=== PATIENT | female | born 1970 | race Caucasian/White ===

== ENCOUNTER 2023-01-01 18:13 | Inpatient (IN) | payer OTHER ==
[2023-01-01 18:51] VITALS: BMI 20.3
[2023-01-01] MEDS ORDERED: BENZONATATE 200 MG CAPSULE PO PRN (21:00)
[2023-01-01] MEDS ORDERED: BISMUTH SUBSALICYLATE 524 MG/30 ML PO PRN (21:00)
[2023-01-01] MEDS ORDERED: BENZOCAINE/MENTHOL (CHLORASEPTIC ) LOZENGE MM PRN (21:00)
[2023-01-01] MEDS ORDERED: DICYCLOMINE HCL 10 MG CAPSULE PO PRN (21:00)
[2023-01-01] MEDS ORDERED: guaiFENesin 600 MG TABLET.ER (FP) PO PRN (21:00)
[2023-01-01] MEDS ORDERED: MAGNESIUM HYDROX 2400MG/30ML ORAL SUSPENSION 30 ML CUP PO PRN (21:00)
[2023-01-01] MEDS ORDERED: LOPERAMIDE HCL 2 MG CAPSULE PO PRN (21:00)
[2023-01-01] MEDS ORDERED: POLYETHYLENE GLYCOL (HEALTHYLAX) 3350 17 GM PACKET PO PRN (21:00)
[2023-01-01] MEDS ORDERED: NALOXONE HCL 0.4 MG/ML VIAL IM PRN (21:00)
[2023-01-01] MEDS ORDERED: hydrOXYzine PAMOATE 25 MG CAPSULE (FP) PO PRN (21:00)
[2023-01-01] MEDS ORDERED: IBUPROFEN 400 MG TABLET (FP) PO PRN (21:00)
[2023-01-01] MEDS ORDERED: ONDANSETRON *ODT* 4 MG TABLET SL PRN (21:00)
[2023-01-01] MEDS ORDERED: ACETAMINOPHEN 325 MG TABLET (FP) PO PRN ×2 (21:00)
[2023-01-01] MEDS ORDERED: MAG HYDROX/AL HYDROX/SIMETH 30 ML UNIT-DOSE CUP PO PRN (21:00)
[2023-01-01] MEDS ORDERED: P-EPHED 60MG/TRIPROLIDI 2.5MG TABLET PO PRN (21:00)
[2023-01-01] MEDS ORDERED: IBUPROFEN 600 MG TABLET (FP) PO PRN (21:00)
[2023-01-01] MEDS ORDERED: NALOXONE HCL (KLOXXADO) 8 MG SPRAY NS PRN (21:00)
[2023-01-01] MEDS ORDERED: chlordiazePOXIDE HCL 25 MG CAPSULE PO PRN (21:02)
[2023-01-01] MEDS: THIAMINE HCL 100 MG TABLET (FP) PO SCH (22:31)
[2023-01-01] MEDS: chlordiazePOXIDE HCL 25 MG CAPSULE PO SCH (22:31)
[2023-01-01] MEDS: MELATONIN 5 MG TABLETS PO SCH (22:31)
[2023-01-02] MEDS: chlordiazePOXIDE HCL 25 MG CAPSULE PO SCH ×4 (05:55→22:47)
[2023-01-02] MEDS: PRENATAL VITAMINS W/ FOLIC ACID TABLET (FP) PO SCH (10:18)
[2023-01-02] MEDS: MELATONIN 5 MG TABLETS PO SCH (22:45)
[2023-01-02] MEDS: THIAMINE HCL 100 MG TABLET (FP) PO SCH (22:45)
[2023-01-03] MEDS: chlordiazePOXIDE HCL 25 MG CAPSULE PO SCH ×4 (05:37→22:07)
[2023-01-03] MEDS: PRENATAL VITAMINS W/ FOLIC ACID TABLET (FP) PO SCH (10:16)
[2023-01-03] MEDS: MELATONIN 5 MG TABLETS PO SCH (22:07)
[2023-01-03] MEDS: THIAMINE HCL 100 MG TABLET (FP) PO SCH (22:07)
[2023-01-04] MEDS ORDERED: chlordiazePOXIDE HCL 10 MG CAPSULE PO PRN
[2023-01-04] MEDS: chlordiazePOXIDE HCL 10 MG CAPSULE PO SCH ×4 (05:55→22:19)
[2023-01-04] MEDS: PRENATAL VITAMINS W/ FOLIC ACID TABLET (FP) PO SCH (10:16)
[2023-01-04] MEDS: MELATONIN 5 MG TABLETS PO SCH (22:19)
[2023-01-04] MEDS: THIAMINE HCL 100 MG TABLET (FP) PO SCH (22:19)
[2023-01-05] MEDS ORDERED: chlordiazePOXIDE HCL 10 MG CAPSULE PO SCH (05:00)
[2023-01-05 06:59] VITALS: BP 115/64; PULSE 60; RESP 17; TEMP 97.8
[2023-01-06] MEDS ORDERED: chlordiazePOXIDE HCL 10 MG CAPSULE PO ONE (05:00)
== END 2023-01-05 08:49 | disposition home or self-care (01) | DRG 897 ==
LOC: YASAS 18:13 → Y6N 21:16
PROVIDERS: ADMIT Allergy & Immunology; ATTEND Surgery
PROC: HZ2ZZZZ Detoxification Services for Substance Abuse Treatment (ICD-10-PCS; principal; 2023-01-01)
DX: F10.230 Alcohol dependence with withdrawal, uncomplicated (principal); Z56.0 Unemployment, unspecified; Z59.00 Homelessness unspecified
CPT/HCPCS: 81025; C9803-CS; Q0162; U0003; U0005

== ENCOUNTER 2023-05-07 13:09 | Inpatient (IN) | payer OTHER ==
[2023-05-07 13:47] VITALS: BMI 21.2
[2023-05-07] MEDS ORDERED: BISMUTH SUBSALICYLATE 524 MG/30 ML PO PRN (15:42)
[2023-05-07] MEDS ORDERED: BENZONATATE 200 MG CAPSULE PO PRN (15:42)
[2023-05-07] MEDS ORDERED: BENZOCAINE/MENTHOL (CHLORASEPTIC ) LOZENGE MM PRN (15:42)
[2023-05-07] MEDS ORDERED: MAG HYDROX/AL HYDROX/SIMETH 30 ML UNIT-DOSE CUP PO PRN (15:42)
[2023-05-07] MEDS ORDERED: METHOCARBAMOL 500 MG TABLET PO PRN (15:42)
[2023-05-07] MEDS ORDERED: IBUPROFEN 400 MG TABLET (FP) PO PRN (15:42)
[2023-05-07] MEDS ORDERED: LOPERAMIDE HCL 2 MG CAPSULE PO PRN (15:42)
[2023-05-07] MEDS ORDERED: MAGNESIUM HYDROX 2400MG/30ML ORAL SUSPENSION 30 ML CUP PO PRN (15:42)
[2023-05-07] MEDS ORDERED: ACETAMINOPHEN 325 MG TABLET (FP) PO PRN (15:42)
[2023-05-07] MEDS ORDERED: IBUPROFEN 600 MG TABLET (FP) PO PRN (15:42)
[2023-05-07] MEDS ORDERED: POLYETHYLENE GLYCOL (HEALTHYLAX) 3350 17 GM PACKET PO PRN (15:42)
[2023-05-07] MEDS ORDERED: guaiFENesin 600 MG TABLET.ER (FP) PO PRN (15:42)
[2023-05-07] MEDS ORDERED: DICYCLOMINE HCL 10 MG CAPSULE PO PRN (15:42)
[2023-05-07] MEDS ORDERED: diazePAM 5 MG TABLET PO PRN (15:47)
[2023-05-07] MEDS ORDERED: diazePAM 5 MG TABLET ONE (17:32)
[2023-05-07] MEDS: diazePAM 5 MG TABLET PO SCH ×2 (17:37→22:24)
[2023-05-07] MEDS ORDERED: METOPROLOL TARTRATE 25 MG TABLET (FP) PO ONE (20:54)
[2023-05-07] MEDS: MELATONIN 5 MG TABLETS PO SCH (22:23)
[2023-05-07] MEDS: THIAMINE HCL 100 MG TABLET (FP) PO SCH (22:23)
[2023-05-07] MEDS: SULFAMETHOXAZOLE/TRIMETHOPRIM 800MG/160MG D.S. TABLET PO SCH (22:24)
[2023-05-08] MEDS: diazePAM 5 MG TABLET PO SCH ×4 (05:56→22:43)
[2023-05-08] MEDS: PRENATAL VITAMINS W/ FOLIC ACID TABLET (FP) PO SCH (10:21)
[2023-05-08] MEDS: SULFAMETHOXAZOLE/TRIMETHOPRIM 800MG/160MG D.S. TABLET PO SCH ×2 (10:23→22:40)
[2023-05-08 10:53] LABS: HEMATOCRIT 38.1 % (32.4-45.2); HEMOGLOBIN 12.7 GM/dL (10.7-15.3); MCH 34.4 pg (25.7-33.7); MCHC 33.3 g/dl (32.0-36.0); MEAN CELL VOLUME 103.2 fl (80-96); MEAN PLT VOLUME 8.6 fl (7.5-11.1); PLATELET COUNT 153 10^3/uL (134-434); RBC 3.69 M/mm3 (3.60-5.2); RDW 16.6 % (11.6-15.6); WHITE BLOOD COUNT 8.4 K/mm3 (4.0-10.0)
[2023-05-08 10:54] LABS: POTASSIUM 4.3 mmol/L (3.5-5.1)
[2023-05-08 10:57] LABS: CALCIUM 8.7 mg/dL (8.5-10.1)
[2023-05-08 10:58] LABS: ALBUMIN 3.1 g/dl (3.4-5.0); BLOOD UREA NITROGEN 9.2 mg/dL (7-18)
[2023-05-08 11:01] LABS: CREATININE 0.7 mg/dL (0.55-1.3)
[2023-05-08 11:02] LABS: BILIRUBIN,TOTAL 1.1 mg/dL (0.2-1); TOT PROT 6.6 g/dl (6.4-8.2)
[2023-05-08] MEDS: hydrOXYzine PAMOATE 25 MG CAPSULE (FP) PO PRN (16:51)
[2023-05-08] MEDS: ONDANSETRON *ODT* 4 MG TABLET SL PRN (16:51)
[2023-05-08] MEDS: THIAMINE HCL 100 MG TABLET (FP) PO SCH (22:40)
[2023-05-08] MEDS: MELATONIN 5 MG TABLETS PO SCH (22:40)
[2023-05-09] MEDS: diazePAM 5 MG TABLET PO SCH ×3 (05:49→22:36)
[2023-05-09] MEDS: PRENATAL VITAMINS W/ FOLIC ACID TABLET (FP) PO SCH (09:45)
[2023-05-09] MEDS: SULFAMETHOXAZOLE/TRIMETHOPRIM 800MG/160MG D.S. TABLET PO SCH ×2 (09:46→22:36)
[2023-05-09] MEDS: THIAMINE HCL 100 MG TABLET (FP) PO SCH (22:36)
[2023-05-09] MEDS: MELATONIN 5 MG TABLETS PO SCH (22:37)
[2023-05-10] MEDS: diazePAM 5 MG TABLET PO SCH ×2 (05:36→17:05)
[2023-05-10] MEDS: SULFAMETHOXAZOLE/TRIMETHOPRIM 800MG/160MG D.S. TABLET PO SCH ×2 (09:50→22:09)
[2023-05-10] MEDS: PRENATAL VITAMINS W/ FOLIC ACID TABLET (FP) PO SCH (09:50)
[2023-05-10] MEDS: hydrOXYzine PAMOATE 25 MG CAPSULE (FP) PO PRN (17:05)
[2023-05-10] MEDS: ONDANSETRON *ODT* 4 MG TABLET SL PRN (17:05)
[2023-05-10] MEDS: MELATONIN 5 MG TABLETS PO SCH (22:09)
[2023-05-10] MEDS: THIAMINE HCL 100 MG TABLET (FP) PO SCH (22:09)
[2023-05-11] MEDS ORDERED: diazePAM 5 MG TABLET PO ONE (06:00)
[2023-05-11 06:01] VITALS: RESP 18
[2023-05-11 09:26] VITALS: BP 116/66; PULSE 88; TEMP 99.1
[2023-05-11] MEDS: PRENATAL VITAMINS W/ FOLIC ACID TABLET (FP) PO SCH (09:51)
[2023-05-11] MEDS: SULFAMETHOXAZOLE/TRIMETHOPRIM 800MG/160MG D.S. TABLET PO SCH (09:51)
== END 2023-05-11 12:14 | disposition home or self-care (01) | DRG 897 ==
LOC: YASAS 13:09 → Y6N 17:06
PROVIDERS: ADMIT Allergy & Immunology; ATTEND Surgery
PROC: HZ2ZZZZ Detoxification Services for Substance Abuse Treatment (ICD-10-PCS; principal; 2023-05-07)
DX: F10.230 Alcohol dependence with withdrawal, uncomplicated (principal); L02.811 Cutaneous abscess of head [any part, except face]
CPT/HCPCS: 36415; 80053; 85027; 86780; 87635; Q0162

== ENCOUNTER 2023-08-30 12:33 | Inpatient (IN) | payer OTHER ==
[2023-08-30 14:12] VITALS: BMI 21.9
[2023-08-30] MEDS ORDERED: MAGNESIUM HYDROX 2400MG/30ML ORAL SUSPENSION 30 ML CUP PO PRN (16:21)
[2023-08-30] MEDS ORDERED: MAG HYDROX/AL HYDROX/SIMETH 30 ML UNIT-DOSE CUP PO PRN (16:21)
[2023-08-30] MEDS ORDERED: BENZOCAINE/MENTHOL (CHLORASEPTIC ) LOZENGE MM PRN (16:21)
[2023-08-30] MEDS ORDERED: LOPERAMIDE HCL 2 MG CAPSULE PO PRN (16:21)
[2023-08-30] MEDS ORDERED: DICYCLOMINE HCL 10 MG CAPSULE PO PRN (16:21)
[2023-08-30] MEDS ORDERED: BENZONATATE 200 MG CAPSULE PO PRN (16:21)
[2023-08-30] MEDS ORDERED: NALOXONE HCL (KLOXXADO) 8 MG SPRAY NS PRN (16:21)
[2023-08-30] MEDS ORDERED: guaiFENesin 600 MG TABLET.ER (FP) PO PRN (16:21)
[2023-08-30] MEDS ORDERED: POLYETHYLENE GLYCOL (HEALTHYLAX) 3350 17 GM PACKET PO PRN (16:21)
[2023-08-30] MEDS ORDERED: ONDANSETRON *ODT* 4 MG TABLET SL PRN (16:21)
[2023-08-30] MEDS ORDERED: NALOXONE HCL 0.4 MG/ML VIAL IM PRN (16:21)
[2023-08-30] MEDS ORDERED: IBUPROFEN 400 MG TABLET (FP) PO PRN (16:21)
[2023-08-30] MEDS ORDERED: ACETAMINOPHEN 325 MG TABLET (FP) PO PRN (16:21)
[2023-08-30] MEDS ORDERED: BISMUTH SUBSALICYLATE 524 MG/30 ML PO PRN (16:21)
[2023-08-30] MEDS ORDERED: IBUPROFEN 600 MG TABLET (FP) PO PRN (16:21)
[2023-08-30] MEDS: THIAMINE HCL 100 MG TABLET (FP) PO SCH (22:09)
[2023-08-30] MEDS: MELATONIN 5 MG TABLETS PO SCH (22:09)
[2023-08-30] MEDS: diazePAM 5 MG TABLET PO SCH (22:10)
[2023-08-30] MEDS: HYDROCORTISONE 1% TOPICAL CREAM 30 GM TUBE TP SCH (22:13)
[2023-08-31] MEDS: diazePAM 5 MG TABLET PO SCH ×4 (05:43→22:13)
[2023-08-31] MEDS: HYDROCORTISONE 1% TOPICAL CREAM 30 GM TUBE TP SCH ×2 (10:06→22:14)
[2023-08-31] MEDS: PRENATAL VITAMINS W/ FOLIC ACID TABLET (FP) PO SCH (10:06)
[2023-08-31 11:48] LABS: HEMATOCRIT 39.1 % (32.4-45.2); HEMOGLOBIN 12.7 GM/dL (10.7-15.3); MCH 32.4 pg (25.7-33.7); MCHC 32.5 g/dl (32.0-36.0); MEAN CELL VOLUME 99.6 fl (80-96); PLATELET COUNT 107 10^3/uL (134-434); RBC 3.92 M/mm3 (3.60-5.2); RDW 14.4 % (11.6-15.6); WHITE BLOOD COUNT 4.8 K/mm3 (4.0-10.0)
[2023-08-31 12:06] LABS: CHLORIDE 103 mmol/L (98-107); POTASSIUM 3.5 mmol/L (3.5-5.1); SODIUM 141 mmol/L (136-145)
[2023-08-31 12:11] LABS: BLOOD UREA NITROGEN 10.3 mg/dL (7-18); CALCIUM 9.3 mg/dL (8.5-10.1)
[2023-08-31 12:12] LABS: ANION GAP 6 mmol/L (4-13); CO2 31 mmol/L (21-32); GLUCOSE,RANDOM 87 mg/dL (74-106)
[2023-08-31 12:13] LABS: ALBUMIN 3.4 g/dl (3.4-5.0); SGPT/ALT 31 U/L (13-61)
[2023-08-31 12:14] LABS: SGOT/AST 62 U/L (15-37)
[2023-08-31 12:15] LABS: TOT PROT 6.8 g/dl (6.4-8.2)
[2023-08-31 12:16] LABS: ALK PHOS 78 U/L (45-117)
[2023-08-31 12:17] LABS: BILIRUBIN,TOTAL 1.1 mg/dL (0.2-1)
[2023-08-31 12:19] LABS: CREATININE 0.6 mg/dL (0.55-1.3)
[2023-08-31] MEDS: METHOCARBAMOL 500 MG TABLET PO PRN (17:22)
[2023-08-31] MEDS: hydrOXYzine PAMOATE 25 MG CAPSULE (FP) PO PRN (17:22)
[2023-08-31] MEDS: MELATONIN 5 MG TABLETS PO SCH (22:13)
[2023-08-31] MEDS: THIAMINE HCL 100 MG TABLET (FP) PO SCH (22:13)
[2023-09-01] MEDS: diazePAM 5 MG TABLET PO SCH ×3 (05:23→22:19)
[2023-09-01] MEDS: HYDROCORTISONE 1% TOPICAL CREAM 30 GM TUBE TP SCH ×2 (10:06→22:19)
[2023-09-01] MEDS: PRENATAL VITAMINS W/ FOLIC ACID TABLET (FP) PO SCH (10:06)
[2023-09-01] MEDS: diazePAM 5 MG TABLET PO PRN ×2 (10:07→17:24)
[2023-09-01] MEDS ORDERED: NICOTINE POLACRILEX 4 MG GUM BUC PRN (14:50)
[2023-09-01] MEDS ORDERED: NICOTINE POLACRILEX 2 MG LOZENGE BC PRN (14:50)
[2023-09-01] MEDS: MELATONIN 5 MG TABLETS PO SCH (22:18)
[2023-09-01] MEDS: THIAMINE HCL 100 MG TABLET (FP) PO SCH (22:19)
[2023-09-01] MEDS: METHOCARBAMOL 500 MG TABLET PO PRN (22:20)
[2023-09-02] MEDS: diazePAM 5 MG TABLET PO SCH ×2 (05:29→17:54)
[2023-09-02] MEDS: diazePAM 5 MG TABLET PO PRN ×2 (09:58→13:58)
[2023-09-02] MEDS: PRENATAL VITAMINS W/ FOLIC ACID TABLET (FP) PO SCH (09:58)
[2023-09-02] MEDS: HYDROCORTISONE 1% TOPICAL CREAM 30 GM TUBE TP SCH ×2 (10:00→22:22)
[2023-09-02] MEDS: THIAMINE HCL 100 MG TABLET (FP) PO SCH (22:21)
[2023-09-02] MEDS: MELATONIN 5 MG TABLETS PO SCH (22:21)
[2023-09-02] MEDS: METHOCARBAMOL 500 MG TABLET PO PRN (22:22)
[2023-09-02] MEDS: hydrOXYzine PAMOATE 25 MG CAPSULE (FP) PO PRN (22:22)
[2023-09-03] MEDS ORDERED: diazePAM 5 MG TABLET PO ONE (06:00)
[2023-09-03 09:17] VITALS: BP 110/76; PULSE 78; RESP 16; TEMP 97.1
[2023-09-03] MEDS: HYDROCORTISONE 1% TOPICAL CREAM 30 GM TUBE TP SCH (09:27)
[2023-09-03] MEDS: PRENATAL VITAMINS W/ FOLIC ACID TABLET (FP) PO SCH (09:27)
== END 2023-09-03 09:40 | disposition home or self-care (01) | DRG 897 ==
LOC: YASAS 12:33 → Y6N 16:46
PROVIDERS: ADMIT Allergy & Immunology; ATTEND Surgery
PROC: HZ2ZZZZ Detoxification Services for Substance Abuse Treatment (ICD-10-PCS; principal; 2023-08-30)
DX: F10.230 Alcohol dependence with withdrawal, uncomplicated (principal); F41.9 Anxiety disorder, unspecified; I10 Essential (primary) hypertension; L30.9 Dermatitis, unspecified
CPT/HCPCS: 36415; 80053; 80307; 81025; 85027; 86780; 87635

== ENCOUNTER 2023-11-27 16:15 | Inpatient (IN) | payer OTHER ==
[2023-11-27 16:50] VITALS: BMI 21.1
[2023-11-27] MEDS ORDERED: DICYCLOMINE HCL 10 MG CAPSULE PO PRN (19:02)
[2023-11-27] MEDS ORDERED: guaiFENesin 600 MG TABLET.ER (FP) PO PRN (19:02)
[2023-11-27] MEDS ORDERED: LOPERAMIDE HCL 2 MG CAPSULE PO PRN (19:02)
[2023-11-27] MEDS ORDERED: NALOXONE HCL 0.4 MG/ML VIAL IM PRN (19:02)
[2023-11-27] MEDS ORDERED: MAG HYDROX/AL HYDROX/SIMETH 30 ML UNIT-DOSE CUP PO PRN (19:02)
[2023-11-27] MEDS ORDERED: BENZONATATE 200 MG CAPSULE PO PRN (19:02)
[2023-11-27] MEDS ORDERED: IBUPROFEN 600 MG TABLET (FP) PO PRN (19:02)
[2023-11-27] MEDS ORDERED: ACETAMINOPHEN 325 MG TABLET (FP) PO PRN (19:02)
[2023-11-27] MEDS ORDERED: NALOXONE HCL (KLOXXADO) 8 MG SPRAY NS PRN (19:02)
[2023-11-27] MEDS ORDERED: POLYETHYLENE GLYCOL (HEALTHYLAX) 3350 17 GM PACKET PO PRN (19:02)
[2023-11-27] MEDS ORDERED: MAGNESIUM HYDROX 2400MG/30ML ORAL SUSPENSION 30 ML CUP PO PRN (19:02)
[2023-11-27] MEDS ORDERED: BISMUTH SUBSALICYLATE 524 MG/30 ML PO PRN (19:02)
[2023-11-27] MEDS ORDERED: BENZOCAINE/MENTHOL (CHLORASEPTIC ) LOZENGE MM PRN (19:02)
[2023-11-27] MEDS ORDERED: IBUPROFEN 400 MG TABLET (FP) PO PRN (19:02)
[2023-11-27] MEDS ORDERED: ONDANSETRON *ODT* 4 MG TABLET SL PRN (19:02)
[2023-11-27] MEDS ORDERED: cloNIDine HCL 0.1 MG TABLET ONE (20:28)
[2023-11-27] MEDS: cloNIDine HCL 0.1 MG TABLET PO ONE ×2 (20:31→23:00)
[2023-11-27] MEDS: METHOCARBAMOL 500 MG TABLET PO PRN (22:12)
[2023-11-27] MEDS: diazePAM 5 MG TABLET PO SCH (22:12)
[2023-11-27] MEDS: hydrOXYzine PAMOATE 25 MG CAPSULE (FP) PO PRN (22:12)
[2023-11-27] MEDS: THIAMINE 100 MG TABLET PO SCH (22:13)
[2023-11-27] MEDS: MELATONIN 5 MG TABLETS PO SCH (22:13)
[2023-11-28] MEDS: PRENATAL VITAMINS W/ FOLIC ACID TABLET (FP) PO SCH (10:52)
[2023-11-28] MEDS: amLODIPine BESYLATE 5 MG TABLET (FP) PO SCH (10:57)
[2023-11-28] MEDS: MINERAL OIL/PETROLAT/WATER TOPICAL CREAM 113 GM JAR TP SCH (22:39)
[2023-11-29] MEDS: diazePAM 5 MG TABLET PO SCH (06:10)
[2023-11-29] MEDS: diazePAM 5 MG TABLET PO PRN (12:50)
[2023-11-29] MEDS: NALTREXONE HCL 50 MG TABLET PO SCH (16:08)
[2023-11-30] MEDS: diazePAM 5 MG TABLET PO SCH (06:27)
[2023-12-01] MEDS: diazePAM 5 MG TABLET PO ONE (05:41)
[2023-12-01 07:08] VITALS: RESP 16
[2023-12-01 09:12] VITALS: BP 106/70; PULSE 62; TEMP 97.6
== END 2023-12-01 09:28 | disposition other institution (70) | DRG 897 ==
LOC: YASAS 16:15 → Y6N 19:30
PROVIDERS: ADMIT Allergy & Immunology; ATTEND Surgery
PROC: HZ2ZZZZ Detoxification Services for Substance Abuse Treatment (ICD-10-PCS; principal; 2023-11-27)
DX: F10.230 Alcohol dependence with withdrawal, uncomplicated (principal); Z59.00 Homelessness unspecified; D64.9 Anemia, unspecified; I10 Essential (primary) hypertension; L85.3 Xerosis cutis; B35.3 Tinea pedis
CPT/HCPCS: 81025; 93005; 93010

== ENCOUNTER 2024-01-07 12:08 | Inpatient (IN) | payer OTHER ==
[2024-01-07 12:33] VITALS: BMI 20.7
[2024-01-07] MEDS ORDERED: chlordiazePOXIDE HCL 25 MG CAPSULE PO PRN (12:38)
[2024-01-07] MEDS ORDERED: BENZONATATE 200 MG CAPSULE PO PRN (12:40)
[2024-01-07] MEDS ORDERED: BENZOCAINE/MENTHOL (CHLORASEPTIC ) LOZENGE MM PRN (12:40)
[2024-01-07] MEDS ORDERED: IBUPROFEN 400 MG TABLET (FP) PO PRN (12:40)
[2024-01-07] MEDS ORDERED: ONDANSETRON *ODT* 4 MG TABLET SL PRN (12:40)
[2024-01-07] MEDS ORDERED: ACETAMINOPHEN 325 MG TABLET (FP) PO PRN (12:40)
[2024-01-07] MEDS ORDERED: DICYCLOMINE HCL 10 MG CAPSULE PO PRN (12:40)
[2024-01-07] MEDS ORDERED: LOPERAMIDE HCL 2 MG CAPSULE PO PRN (12:40)
[2024-01-07] MEDS ORDERED: POLYETHYLENE GLYCOL (HEALTHYLAX) 3350 17 GM PACKET PO PRN (12:40)
[2024-01-07] MEDS ORDERED: MAGNESIUM HYDROX 2400MG/30ML ORAL SUSPENSION 30 ML CUP PO PRN (12:40)
[2024-01-07] MEDS ORDERED: MAG HYDROX/AL HYDROX/SIMETH 30 ML UNIT-DOSE CUP PO PRN (12:40)
[2024-01-07] MEDS ORDERED: guaiFENesin 600 MG TABLET.ER (FP) PO PRN (12:40)
[2024-01-07] MEDS ORDERED: BISMUTH SUBSALICYLATE 262 MG/15 ML BTL PO PRN (12:40)
[2024-01-07] MEDS ORDERED: amLODIPine BESYLATE 5 MG TABLET (FP) ONE (13:22)
[2024-01-07] MEDS ORDERED: chlordiazePOXIDE HCL 25 MG CAPSULE ONE (13:22)
[2024-01-07] MEDS: amLODIPine BESYLATE 5 MG TABLET (FP) PO SCH (13:26)
[2024-01-07] MEDS: chlordiazePOXIDE HCL 25 MG CAPSULE PO ONE (13:26)
[2024-01-07] MEDS: chlordiazePOXIDE HCL 25 MG CAPSULE PO SCH (17:16)
[2024-01-07] MEDS: THIAMINE 100 MG TABLET PO SCH (22:14)
[2024-01-07] MEDS: MELATONIN 5 MG TABLETS PO SCH (22:14)
[2024-01-07] MEDS: METHOCARBAMOL 500 MG TABLET PO PRN (22:16)
[2024-01-07] MEDS ORDERED: BACITRACIN ZINC 15 GM TUBE TOPICAL OINTMENT TP PRN (23:42)
[2024-01-08] MEDS: IBUPROFEN 600 MG TABLET (FP) PO PRN (05:57)
[2024-01-08] MEDS: PRENATAL VITAMINS W/ FOLIC ACID TABLET (FP) PO SCH (10:37)
[2024-01-08 11:26] LABS: POTASSIUM 3.7 mmol/L (3.5-5.1)
[2024-01-08 11:28] LABS: HEMATOCRIT 35.6 % (32.4-45.2); HEMOGLOBIN 12.2 GM/dL (10.7-15.3); MCH 32.5 pg (25.7-33.7); MCHC 34.3 g/dl (32.0-36.0); MEAN CELL VOLUME 94.9 fl (80-96); PLATELET COUNT 125 10^3/uL (134-434); RBC 3.75 M/mm3 (3.60-5.2); RDW 15.2 % (11.6-15.6); WHITE BLOOD COUNT 7.2 K/mm3 (4.0-10.0)
[2024-01-08 11:30] LABS: BLOOD UREA NITROGEN 5.1 mg/dL (7-18); CALCIUM 8.6 mg/dL (8.5-10.1)
[2024-01-08 11:33] LABS: CREATININE 0.7 mg/dL (0.55-1.3)
[2024-01-08] MEDS: hydrOXYzine PAMOATE 25 MG CAPSULE (FP) PO PRN (22:20)
[2024-01-09] MEDS: chlordiazePOXIDE HCL 25 MG CAPSULE PO SCH (06:23)
[2024-01-09] MEDS: BACITRACIN 0.9 GM PACKET TP PRN (16:55)
[2024-01-10] MEDS ORDERED: chlordiazePOXIDE HCL 10 MG CAPSULE PO PRN
[2024-01-10] MEDS: chlordiazePOXIDE HCL 10 MG CAPSULE PO SCH (05:39)
[2024-01-11] MEDS: chlordiazePOXIDE HCL 10 MG CAPSULE PO SCH (05:58)
[2024-01-12] MEDS: chlordiazePOXIDE HCL 10 MG CAPSULE PO ONE (05:50)
[2024-01-12 07:12] VITALS: BP 121/81; PULSE 73; RESP 16; TEMP 97.6
== END 2024-01-12 11:15 | disposition home or self-care (01) | DRG 897 ==
LOC: YASAS 12:08 → Y6N 13:14
PROVIDERS: ADMIT Allergy & Immunology; ATTEND Surgery
PROC: HZ2ZZZZ Detoxification Services for Substance Abuse Treatment (ICD-10-PCS; principal; 2024-01-07)
DX: F10.230 Alcohol dependence with withdrawal, uncomplicated (principal); Z59.00 Homelessness unspecified; E80.6 Other disorders of bilirubin metabolism; I10 Essential (primary) hypertension
CPT/HCPCS: 36415; 80053; 80305; 80307; 81025; 85027; 86780

== ENCOUNTER 2024-03-15 17:49 | Inpatient (IN) | payer OTHER ==
[2024-03-15 20:01] VITALS: BMI 19.9
[2024-03-15] MEDS ORDERED: BISMUTH SUBSALICYLATE 524 MG/30 ML PO PRN (20:41)
[2024-03-15] MEDS ORDERED: IBUPROFEN 400 MG TABLET (FP) PO PRN (20:41)
[2024-03-15] MEDS ORDERED: LOPERAMIDE HCL 2 MG CAPSULE PO PRN (20:41)
[2024-03-15] MEDS ORDERED: MAGNESIUM HYDROX 2400MG/30ML ORAL SUSPENSION 30 ML CUP PO PRN (20:41)
[2024-03-15] MEDS ORDERED: ACETAMINOPHEN 325 MG TABLET (FP) PO PRN (20:41)
[2024-03-15] MEDS ORDERED: NALOXONE HCL 0.4 MG/ML VIAL IM PRN (20:41)
[2024-03-15] MEDS ORDERED: guaiFENesin 600 MG TABLET.ER (FP) PO PRN (20:41)
[2024-03-15] MEDS ORDERED: BENZOCAINE/MENTHOL (CHLORASEPTIC ) LOZENGE MM PRN (20:41)
[2024-03-15] MEDS ORDERED: MAG HYDROX/AL HYDROX/SIMETH 30 ML UNIT-DOSE CUP PO PRN (20:41)
[2024-03-15] MEDS ORDERED: ONDANSETRON *ODT* 4 MG TABLET SL PRN (20:41)
[2024-03-15] MEDS ORDERED: POLYETHYLENE GLYCOL (HEALTHYLAX) 3350 17 GM PACKET PO PRN (20:41)
[2024-03-15] MEDS ORDERED: IBUPROFEN 600 MG TABLET (FP) PO PRN (20:41)
[2024-03-15] MEDS ORDERED: NALOXONE (NARCAN) HCL 4 MG/0.1 ML SPRAY NS PRN (20:41)
[2024-03-15] MEDS ORDERED: BENZONATATE 200 MG CAPSULE PO PRN (20:41)
[2024-03-15] MEDS ORDERED: DICYCLOMINE HCL 10 MG CAPSULE PO PRN (20:41)
[2024-03-15] MEDS ORDERED: chlordiazePOXIDE HCL 25 MG CAPSULE ONE (22:21)
[2024-03-15] MEDS ORDERED: MELATONIN 5 MG TABLETS ONE (22:21)
[2024-03-15] MEDS ORDERED: hydrOXYzine PAMOATE 25 MG CAPSULE (FP) PO ONE (22:23)
[2024-03-15] MEDS: THIAMINE 100 MG TABLET PO SCH (22:24)
[2024-03-15] MEDS: hydrOXYzine PAMOATE 25 MG CAPSULE (FP) PO PRN (22:24)
[2024-03-15] MEDS: MELATONIN 5 MG TABLETS PO SCH (22:24)
[2024-03-15] MEDS: chlordiazePOXIDE HCL 25 MG CAPSULE PO SCH (22:25)
[2024-03-16] MEDS ORDERED: chlordiazePOXIDE HCL 25 MG CAPSULE ONE ×2 (05:51→10:19)
[2024-03-16] MEDS ORDERED: PRENATAL VITAMINS W/ FOLIC ACID TABLET (FP) PO ONE (10:19)
[2024-03-16] MEDS: PRENATAL VITAMINS W/ FOLIC ACID TABLET (FP) PO SCH (10:24)
[2024-03-16 11:48] LABS: CHLORIDE 105 mmol/L (98-107); POTASSIUM 4.1 mmol/L (3.5-5.1); SODIUM 140 mmol/L (136-145)
[2024-03-16 11:52] LABS: HEMOGLOBIN 12.3 GM/dL (10.7-15.3); MCH 32.3 pg (25.7-33.7); MCHC 33.3 g/dl (32.0-36.0); MEAN CELL VOLUME 97.2 fl (80-96); MEAN PLT VOLUME 8.7 fl (7.5-11.1); PLATELET COUNT 152 10^3/uL (134-434); RBC 3.81 M/mm3 (3.60-5.2); RDW 17.8 % (11.6-15.6); WHITE BLOOD COUNT 5.2 K/mm3 (4.0-10.0)
[2024-03-16 12:18] LABS: ALBUMIN 3.4 g/dl (3.4-5.0); ANION GAP 6 mmol/L (4-13); BLOOD UREA NITROGEN 11.1 mg/dL (7-18); CALCIUM 9.2 mg/dL (8.5-10.1); CO2 28 mmol/L (21-32); GLUCOSE,RANDOM 93 mg/dL (74-106)
[2024-03-16 12:20] LABS: SGOT/AST 22 U/L (15-37); SGPT/ALT 13 U/L (13-61)
[2024-03-16 12:22] LABS: CREATININE 0.9 mg/dL (0.55-1.3)
[2024-03-16 12:23] LABS: BILIRUBIN,TOTAL 0.9 mg/dL (0.2-1); TOT PROT 6.7 g/dl (6.4-8.2)
[2024-03-16 12:24] LABS: ALK PHOS 83 U/L (45-117)
[2024-03-17] MEDS: chlordiazePOXIDE HCL 25 MG CAPSULE PO SCH (05:38)
[2024-03-17] MEDS: METHOCARBAMOL 500 MG TABLET PO PRN (10:03)
[2024-03-17] MEDS: chlordiazePOXIDE HCL 25 MG CAPSULE PO PRN (14:06)
[2024-03-18] MEDS ORDERED: chlordiazePOXIDE HCL 10 MG CAPSULE PO PRN
[2024-03-18] MEDS: chlordiazePOXIDE HCL 10 MG CAPSULE PO SCH (05:31)
[2024-03-19] MEDS: chlordiazePOXIDE HCL 10 MG CAPSULE PO SCH (05:55)
[2024-03-20] MEDS: chlordiazePOXIDE HCL 10 MG CAPSULE PO ONE (05:27)
[2024-03-20 12:51] VITALS: BP 109/60; PULSE 70; RESP 16; TEMP 98.3
== END 2024-03-20 14:03 | disposition home or self-care (01) | DRG 897 ==
LOC: YASAS 17:49 → Y3N 03-16 10:12
PROVIDERS: ADMIT Allergy & Immunology; ATTEND Surgery
PROC: HZ2ZZZZ Detoxification Services for Substance Abuse Treatment (ICD-10-PCS; principal; 2024-03-16)
DX: F10.230 Alcohol dependence with withdrawal, uncomplicated (principal); Z59.01 Sheltered homelessness; F19.94 Other psychoactive substance use, unspecified with psychoactive substance-induced mood disorder; I10 Essential (primary) hypertension; Z56.0 Unemployment, unspecified
CPT/HCPCS: 36415; 80053; 80305; 80307; 81025; 85027; 86780; 87811

== ENCOUNTER 2024-08-09 11:27 | Inpatient (IN) | payer OTHER ==
[2024-08-09 11:47] VITALS: BMI 19.4
[2024-08-09] MEDS ORDERED: IBUPROFEN 600 MG TABLET (FP) PO PRN (12:55)
[2024-08-09] MEDS ORDERED: BENZOCAINE/MENTHOL (CHLORASEPTIC ) LOZENGE MM PRN (12:55)
[2024-08-09] MEDS ORDERED: guaiFENesin 600 MG TABLET.ER (FP) PO PRN (12:55)
[2024-08-09] MEDS ORDERED: DICYCLOMINE HCL 10 MG CAPSULE PO PRN (12:55)
[2024-08-09] MEDS ORDERED: LOPERAMIDE HCL 2 MG CAPSULE PO PRN (12:55)
[2024-08-09] MEDS ORDERED: POLYETHYLENE GLYCOL (HEALTHYLAX) 3350 17 GM PACKET PO PRN (12:55)
[2024-08-09] MEDS ORDERED: MAG HYDROX/AL HYDROX/SIMETH 30 ML UNIT-DOSE CUP PO PRN (12:55)
[2024-08-09] MEDS ORDERED: IBUPROFEN 400 MG TABLET (FP) PO PRN (12:55)
[2024-08-09] MEDS ORDERED: NALOXONE (NARCAN) HCL 4 MG/0.1 ML SPRAY NS PRN (12:55)
[2024-08-09] MEDS ORDERED: BENZONATATE 200 MG CAPSULE PO PRN (12:55)
[2024-08-09] MEDS ORDERED: ONDANSETRON *ODT* 4 MG TABLET SL PRN (12:55)
[2024-08-09] MEDS ORDERED: MAGNESIUM HYDROX 2400MG/30ML ORAL SUSPENSION 30 ML CUP PO PRN (12:55)
[2024-08-09] MEDS ORDERED: BISMUTH SUBSALICYLATE 524 MG/30 ML PO PRN (12:55)
[2024-08-09] MEDS: chlordiazePOXIDE HCL 25 MG CAPSULE PO PRN (14:22)
[2024-08-09] MEDS: ACETAMINOPHEN 325 MG TABLET (FP) PO PRN (14:23)
[2024-08-09] MEDS: chlordiazePOXIDE HCL 25 MG CAPSULE PO SCH (17:30)
[2024-08-09] MEDS: METHOCARBAMOL 500 MG TABLET PO PRN (17:31)
[2024-08-09] MEDS ORDERED: MELATONIN 5 MG TABLETS PO SCH (22:00)
[2024-08-09] MEDS: SUVOREXANT 5 MG TABLET PO PRN (22:07)
[2024-08-09] MEDS: THIAMINE 100 MG TABLET PO SCH (22:07)
[2024-08-10] MEDS: PRENATAL VITAMINS W/ FOLIC ACID TABLET (FP) PO SCH (10:02)
[2024-08-10] MEDS: amLODIPine BESYLATE 5 MG TABLET (FP) PO ONE (17:27)
[2024-08-10 17:59] LABS: HEMATOCRIT 42.1 % (32.4-45.2); HEMOGLOBIN 13.5 GM/dL (10.7-15.3); MCH 31.8 pg (25.7-33.7); MEAN CELL VOLUME 99.3 fl (80-96); MEAN PLT VOLUME 8.1 fl (7.5-11.1); PLATELET COUNT 187 10^3/uL (134-434); RBC 4.24 M/mm3 (3.60-5.2); RDW 15.6 % (11.6-15.6)
[2024-08-10 18:10] LABS: POTASSIUM 3.7 mmol/L (3.5-5.1)
[2024-08-10 18:17] LABS: ALBUMIN 3.5 g/dl (3.4-5.0); CALCIUM 9.4 mg/dL (8.5-10.1)
[2024-08-10 18:19] LABS: CREATININE 0.8 mg/dL (0.55-1.3)
[2024-08-10 18:22] LABS: BILIRUBIN,TOTAL 1.2 mg/dL (0.2-1); TOT PROT 7.1 g/dl (6.4-8.2)
[2024-08-11] MEDS: chlordiazePOXIDE HCL 25 MG CAPSULE PO SCH (05:33)
[2024-08-11] MEDS: hydrOXYzine PAMOATE 25 MG CAPSULE (FP) PO PRN (13:45)
[2024-08-12] MEDS ORDERED: chlordiazePOXIDE HCL 10 MG CAPSULE PO PRN
[2024-08-12] MEDS: chlordiazePOXIDE HCL 10 MG CAPSULE PO SCH (06:00)
[2024-08-13] MEDS: chlordiazePOXIDE HCL 10 MG CAPSULE PO SCH (05:21)
[2024-08-14] MEDS: chlordiazePOXIDE HCL 10 MG CAPSULE PO ONE (05:44)
[2024-08-14] MEDS: NALOXONE (NYS OPIOID OVERDOSE PROGRAM) 4 MG/0.1 ML SPRAY NS ONE (16:44)
[2024-08-15 09:19] VITALS: BP 102/82; PULSE 84; RESP 16; TEMP 97.5
== END 2024-08-15 10:02 | disposition home or self-care (01) | DRG 897 ==
LOC: YASAS 11:27 → Y3N 13:11
PROVIDERS: ADMIT Psychiatry & Neurology Pain Medicine; ATTEND Psychiatry & Neurology Pain Medicine
PROC: HZ2ZZZZ Detoxification Services for Substance Abuse Treatment (ICD-10-PCS; principal; 2024-08-09)
DX: F10.230 Alcohol dependence with withdrawal, uncomplicated (principal); F19.24 Other psychoactive substance dependence with psychoactive substance-induced mood disorder; F41.9 Anxiety disorder, unspecified; G47.00 Insomnia, unspecified; I10 Essential (primary) hypertension
CPT/HCPCS: 36415; 80053; 80305; 80307; 81025; 85027; 87811; 93005; 93010